=== PATIENT | male | born 1995 | race Two or more races ===

== ENCOUNTER 2016-05-09 16:42 | Emergency (ER) | payer OTHER ==
[~2016-05-09] VITALS: Ht 170.2 cm; Wt 70.3 kg
[2016-05-09 16:54] VITALS: BP 127/68
--- NOTE | 2016-05-09 17:02 | Emergency Room Report ---
History of Present Illness General Chief Complaint: Laceration Source: Patient Present Illness HPI 20-year-old male presents emergency department complaining of laceration to the left thumb times one day. Patient states he was at work working with a chain and a sharp edge open his thumb. Patient states he is not up-to-date with tetanus vaccination. Patient denies taking blood thinning medications. Patient states pain is localized to the distal portion of the left thumb about the laceration and is exacerbated upon palpation patient reports 10/ 10 in severity pain. he denies possibility of foreign body.Denies numbness tingling or loss of sensation or gross motor movements of the extremities, incontinence of bowel or bladder. Denies CP, Palpitations, LOC, AMS, dizziness, Changes in Vision, Sensation, paresthesias, or a sudden severe headache. Pt. later states his Tetanus was updated 2 years ago. Allergies: Coded Allergies: No Known Allergies (Unverified , 05/09/16) Patient History Past Medical History: see triage record Past Surgical History: none Pertinent Family History: none Immunizations: UTD Reviewed Nursing Documentation: PMH: Agreed, PSxH: Agreed Nursing Documentation-PMH Past Medical History: No Stated History Review of Systems All Other Systems: negative except mentioned in HPI Physical Exam Vital Signs Date Time Temp Pulse Resp B/P Pulse Ox O2 Delivery O2 Flow Rate FiO2 05/09/16 16:45 98.1 102 18 127/68 98 Room Air Sp02 EP Interpretation: reviewed, normal General Appearance: no apparent distress, alert, GCS 15, non-toxic Head: normocephalic, atraumatic Eyes: bilateral eye PERRL, bilateral eye normal inspection ENT: hearing grossly normal, normal pharynx, no angioedema, normal voice Neck: full range of motion, supple/symm/no masses Respiratory: chest non-tender, lungs clear, normal breath sounds, speaking full sentences Cardiovascular #1: regular rate, rhythm, no edema Rectal: deferred Musculoskeletal: back normal, gait/station normal, normal range of motion, non- tender, no calf tenderness, other - no increased laxity, pt. has FROM against resistance. Neurologic: alert, oriented x3, responsive, motor strength/tone normal, sensory intact, speech normal Psychiatric: judgement/insight normal, memory normal, mood/affect normal, no suicidal/homicidal ideation Skin: normal color, no rash, warm/dry, well hydrated, laceration - laceration to the lateral left thumb 3.5cm in length mild bleeding at this time, no obvious FB, Lymphatic: no adenopathy Procedures Splinting Splinting : Consent: Verbal Location: left thumb Splint: figner splint Pre-Proc Neuro Vasc Exam: normal Post-Proc Neuro Vasc Exam: normal Patient Tolerated: Well Complications: None Laceration/Wound Repair Laceration/Wound Repair : Consent: Verbal Wound Location: upper extremity Wound's Depth, Shape: superficial Wound Length (cm): 3 Wound Explored: clean Irrigated w/ Saline (ccs): 200 Betadine Prep?: Yes Anesthesia: 1% Lidocaine Volume Anesthetic (ccs): 7 Wound Debrided: minimal Wound Repaired With: sutures Suture Size/Type: 5:0 Number of Sutures: 7 Layer Closure?: No Sterile Dressing Applied?: Yes Splint Applied?: Yes - finger splint Type of Splint Applied: finger splint Sling Applied?: No Patient Tolerated: Well Complications: None Medical Decision Making PA Attestation Dr. handley is my supervising Physician whom patient management has been discussed with. Diagnostic Impression: Primary Impression: Laceration ER Course Pt. presents to the ED c/o laceration to Left thumb x 1 day Ddx considered but are not limited to laceration, tendon injury, cellulitis, amputation Vital signs: are WNL, pt. is afebrile H&PE are most consistent with: Left thumb laceration approx 3.5 cm in length ORDERS: none required at this time, the diagnosis is clinical ED INTERVENTIONS: . - The wound was copiously irrigated with normal saline, and explored for foreign body for which no FB was found. - pt. is anesthetized with 1%lidocaine - The wound was approximated and closed using 7 interrupted 5.0 Prolene sutures. -Bacitracin is applied - Finger Splint applied by food safety technician. Pt. remains neurovascularly intact. Discussed with patient: That we make every effort to approximate the laceration as best as we can so that scarring will be as cosmetically pleasing as possible with our limited cosmetic skill set in the Emergency dept. Regardless of our best efforts there will be scarring after laceration repair. The extent of scarring is unknown at this time. DISCHARGE: At this time pt. is stable for d/c to home. Will provide printed patient care instructions, and any necessary prescriptions. Care plan and follow up instructions have been discussed with the patient prior to discharge. Last Vital Signs Date Time Temp Pulse Resp B/P Pulse Ox O2 Delivery O2 Flow Rate FiO2 05/09/16 16:54 98.0 102 18 127/68 98 Room Air Disposition: HOME, SELF-CARE Condition: Stable Scripts Cephalexin* (KEFLEX*) 500 Mg Capsule 500 MG ORAL EVERY 12 HOURS for 7 Days, #14 CAP 0 Refills Prov: Leticia Jung 05/09/16 Departure Forms: Return to Work Return to Work Date: May 13, 2016 Work Restrictions: No Heavy Lifting Other Restrictions: limited use of left hand, allow use of splint. x 1 week. Return to Full Activity: May 20, 2016 Patient Instructions: Laceration Care, Adult Additional Instructions: Take medications as directed. Follow up with PCP in 3-5 days Return sooner to ED if new symptoms occur, or current symptoms become worse. Leticia Jung May 09, 2016 17:02
[2016-05-09] MEDS ORDERED: CEPHALEXIN500 MG ORAL (17:10)
[2016-05-09] MEDS ORDERED: Bacitracin Oint UD TOPIC ONE (17:15)
[2016-05-09] MEDS ORDERED: Lidocaine 1% Plain 30 ml INJ ONE (17:15)
[2016-05-09] MEDS: TdaP Vaccine 0.5ml Syr IM ONE ×2 (17:18→17:24)
[2016-05-09 19:08] VITALS: BP 122/76
== END 2016-05-09 19:15 | disposition home or self-care (01) ==
LOC: EMR 17:20
DX: S61.012A Laceration without foreign body of left thumb without damage to nail, initial encounter (principal); W27.8XXA Contact with other nonpowered hand tool, initial encounter; Y92.9 Unspecified place or not applicable; Y99.0 Civilian activity done for income or pay
CPT/HCPCS: 12002; 29280; 99284; J2001; 90471; 90715

== ENCOUNTER 2016-05-24 11:42 | Emergency (ER) | payer OTHER ==
[~2016-05-24] VITALS: Ht 170.2 cm; Wt 68.0 kg
[~2016-05-24 11:42] MED LIST: CEPHALEXIN500 MG ORAL
[2016-05-24 12:18] VITALS: BP 112/68
[2016-05-24 12:35] VITALS: BP 112/68
--- NOTE | 2016-05-24 12:35 | Emergency Room Report ---
History of Present Illness General Chief Complaint: Wound Recheck/Suture Removal Source: Patient Present Illness [facility] The patient is a 20-year-old male presenting for suture removal of left thumb. The patient was seen in this emergency department 2 weeks prior for laceration repair. The patient states that he has been keeping the wound clean and dry and has been applying Neosporin. The patient denies any bleeding, discharge, or pain. The patient denies any numbness or tingling. Patient denies any other symptoms including fever or chills Allergies: Coded Allergies: No Known Allergies (Unverified , 05/09/16) Patient History Past Medical History: see triage record Pertinent Family History: none Reviewed Nursing Documentation: PMH: Agreed, PSxH: Agreed Nursing Documentation-PMH Past Medical History: No Stated History Review of Systems All Other Systems: negative except mentioned in HPI Physical Exam Vital Signs Date Time Temp Pulse Resp B/P Pulse Ox O2 Delivery O2 Flow Rate FiO2 05/24/16 12:04 98.1 85 16 112/68 99 Room Air Sp02 EP Interpretation: reviewed, normal General Appearance: no apparent distress, alert, GCS 15, non-toxic Head: normocephalic, atraumatic Eyes: bilateral eye PERRL, bilateral eye normal inspection ENT: hearing grossly normal, normal pharynx, no angioedema, normal voice Neck: full range of motion, supple/symm/no masses Respiratory: chest non-tender, lungs clear, normal breath sounds, speaking full sentences Musculoskeletal: back normal, gait/station normal, normal range of motion, tender - TTP over L palmar surface of thumb Neurologic: alert, oriented x3, responsive, motor strength/tone normal, sensory intact, speech normal Psychiatric: judgement/insight normal, memory normal, mood/affect normal, no suicidal/homicidal ideation Skin: normal color, no rash, normal turgor, laceration - well healing Medical Decision Making PA Attestation Dr. Chua is my supervising physician. Patient management was discussed with my supervising physician Diagnostic Impression: Primary Impression: Visit for suture removal Additional Impression: Encounter for wound re-check ER Course The patient is a 20-year-old male presenting for suture removal of left thumb. Differential diagnosis considered: Wound infection, nonhealing wound, cellulitis , abscess Physical exam: Vitals within normal limits. No apparent distress. Sutures are in place. Wound is well healing. No bleeding or discharge. Sensation intact to light touch. Full active range of motion of the thumb. Suture removal: 6 simple interrupted sutures were removed without complication. No bleeding or discharge. Wound is well approximated. No surrounding erythema. The area was cleaned with Betadine Patient will be discharged home and is given ER precautions. Patient continue to keep the wound clean and dry Last Vital Signs Date Time Temp Pulse Resp B/P Pulse Ox O2 Delivery O2 Flow Rate FiO2 05/24/16 12:18 98.1 16 112/68 99 Room Air 05/24/16 12:04 85 Status: improved Disposition: HOME, SELF-CARE Condition: Improved Patient Instructions: Wound Check Additional Instructions: I discussed my findings with the patient. All questions and concerns have been answered. Treatment and medication compliance have been addressed. I advised the patient that they need to follow up with PMD in 3-5 days. Return to ED if symptoms worsen, new symptoms arise, or if needed for any reason. Patient verbalized understanding of discharge instructions. GOSIA PUGA May 24, 2016 12:35
== END 2016-05-24 12:37 | disposition home or self-care (01) ==
LOC: EMR 12:11
DX: S61.012D Laceration without foreign body of left thumb without damage to nail, subsequent encounter (principal); Z48.02 Encounter for removal of sutures
CPT/HCPCS: 99281